=== PATIENT | female | born 1955 | race Caucasian/White ===

== ENCOUNTER 2018-05-30 16:20 | Emergency (ER) | payer OTHER | END 2018-05-30 22:02 | disposition home or self-care (01) | LOC: FTE 16:20 | DX: S39.012A Strain of muscle, fascia and tendon of lower back, initial encounter (principal); V49.49XA Driver injured in collision with other motor vehicles in traffic accident, initial encounter | CPT/HCPCS: 72072; 72100; 99283-25 ==